=== PATIENT | female | born 1990 | race Hispanic/Latino ===

== ENCOUNTER 2020-09-21 01:57 | Emergency (ER) | payer BC ==
[2020-09-21] MEDS ORDERED: Dexamethasone 10 MG/ML VIAL ONE (02:20)
[2020-09-21] MEDS ORDERED: Ketorolac Tromethamine 30 MG/ML VIAL ONE (02:20)
== END 2020-09-21 02:39 | disposition home or self-care (01) ==
LOC: CSHERS 01:57
DX: M54.5 Low back pain (principal); M41.9 Scoliosis, unspecified
CPT/HCPCS: 96372; 99283; J1100; J1885